=== PATIENT | female | born 1970 | race Caucasian/White ===

== ENCOUNTER 2021-04-28 11:21 | Outpatient (CLI) | payer OTHER, SELFPAY ==
--- NOTE | 2021-04-28 11:30 | ECG_ITS ---
Measurements Intervals [place] Rate: 81 P: 53 MA: 167 QRS: 25 QRSD: 87 T: 20 QT: 341 QTc: 396 Interpretive Statements SINUS RHYTHM DELAYED PRECORDIAL R/S TRANSITION BORDERLINE ECG Electronically Signed On 04-28-2021 11:57:17 CDT by Juan Reaves D.O.
== END 2021-04-28 11:22 | disposition home or self-care (01) ==
LOC: ANHSURGERY 11:26
PROVIDERS: PCP Family Medicine; Visit Provider Obstetrics & Gynecology
DX: Z01.818 Encounter for other preprocedural examination (principal); N39.3 Stress incontinence (female) (male); E78.5 Hyperlipidemia, unspecified; I10 Essential (primary) hypertension
CPT/HCPCS: 36415; 86850; 86900; 86901; 93005

== ENCOUNTER 2021-04-29 02:14 | Day surgery (SDC) | payer OTHER, SELFPAY ==
[2021-04-21 11:14] VITALS: BMI 30.5
--- NOTE | 2021-04-26 12:20 | PM.IMHP ---
H&P: HPI History of Present Illness Date/Time: 04/26/21 12:20 This is a 50-year-old female admitted for tension-free vaginal tape and cystoscopy secondary to stress urinary incontinence. Patient complains of loss of urine with coughing laughing sneezing or other activities. She finds is socially embarrassing like to have this taken care of. Risks and benefits were reviewed including but not exclusive of , aspiration pneumonia, bleeding, transfusion, perforation injury to bowel, bladder, ureters, or other internal organs the need for open laparotomy the risk of mesh and the need for prolonged catheterization were reviewed. She had all questions answered and asked proceeded Chief Complaint: Stress urinary incontinence Review of Systems Review of Systems: All systems reviewed & are unremarkable except as noted in HPI and below PMFSH Past Medical History Medical History BMI 33.0-33.9,adult Surgical History Surgical History History of ankle surgery Family History Family History Sibling Family history of obesity Mother Family history of cardiovascular disease, Onset Age: 62 Family history of chronic obstructive pulmonary disease, Onset Age: 62 Father Family history of cardiovascular disease, Onset Age: 63 Other Family history of throat cancer Social History Social History Smoking status: Never smoker Alcohol intake: current Drinks per week: 4 Substance use: never Substance use type: does not use Spiritual care concerns: No Meds Home Medications and Allergies Home Medications Medication Instructions Recorded Confirmed Type ascorbic acid-vitamin E-biotin 1 tablet PO HS 04/21/21 04/21/21 History [Hair, Skin, Nails with Biotin] atorvastatin 40 mg PO HS 04/21/21 04/21/21 History lisinopril 10 mg PO HS 04/21/21 04/21/21 History Allergies Allergy/AdvReac Type Severity Reaction Status Date / Time hydrocodone Allergy Unknown Nausea Verified 04/21/21 11:13 Exam Const: General: no acute distress Eyes: General: appearance normal, both eyes and all related structures Neck: Neck: supple and no JVD Thyroid: thyroid normal Resp: Effort & Inspection: normal respiratory effort Auscultation: clear to auscultation bilaterally Cardio: Rate: regular rate Rhythm: regular rhythm GI: Inspection: non-distended GI Palp: Yes Soft to palpation, No Tenderness to palpation present (GI) and No Guarding due to palpation present (GI) Auscultation: normal bowel sounds : General: Yes bladder normal to palpation External Female Exam: normal external appearance Speculum Exam - Vagina: normal vaginal discharge and No vaginal bleeding Speculum Exam - Cervix: nontender Bimanual exam- vagina & uterus: bladder normal to palpation and No Cervical tenderness present OB/external & speculum: No vaginal bleeding Skin: General skin exam: no rashes or lesions noted Extrem: General: normal to inspection and no edema Psych: Mental Status: mental status grossly normal Affect: normal affect Assessment and Plan Additional Plan Impression: Stress urinary incontinence Plan: Cystoscopy and tension-free vaginal tape
[2021-04-29] VITALS (8 sets, daily range): BP systolic 137–152; BP diastolic 74–93; PULSE 70–97; RESP 9–16; TEMP 36.3; O2SAT 97–100
[2021-04-29] MEDS: LACTATED RINGERS 1,000 ML 30 ML IV CONT (06:40)
--- NOTE | 2021-04-29 06:59 | WPDANESEPPF ---
Anes - Initial Pre Proc Eval Procedure: Operation Date: 04/29/21 07:30 Proposed Procedures p Cystoscopy, Tension Free Vaginal Taping - Brad Antonio MD Date/Time: 04/29/21 06:59 Surgeon: Brad Antonio MD Pre Op Diagnosis: JOSE Patient Data Age: 50 Gender: F Height: 1.64 m Weight: 86.6 kg Last Vital Signs Temp 36.3 C L 04/29/21 06:25 Pulse 85 04/29/21 06:25 Resp 14 04/29/21 06:25 BP 152/92 H 04/29/21 06:25 Pulse Ox 100 04/29/21 06:25 Allergies Allergy/AdvReac Type Severity Reaction Status Date / Time hydrocodone Allergy Intermediate Nausea Verified 04/29/21 06:36 Home Medications Medication Instructions Recorded Confirmed Type ascorbic acid-vitamin E-biotin 1 tablet PO HS 04/21/21 04/29/21 History [Hair, Skin, Nails with Biotin] atorvastatin 40 mg PO HS 04/21/21 04/29/21 History lisinopril 10 mg PO HS 04/21/21 04/29/21 History Patient hx anesthesia problems: post op nausea/vomiting Family hx anesthesia problems: none Results Review: All pre-operative results and documents have been reviewed as part of the pre-operative evaluation. [facility] Past Medical History Medical History BMI 33.0-33.9,adult Essential (primary) hypertension Hyperlipidemia LDL goal <130 Surgical History Surgical History History of ankle surgery Family History Family History Sibling Family history of obesity Mother Family history of cardiovascular disease, Onset Age: 62 Family history of chronic obstructive pulmonary disease, Onset Age: 62 Father Family history of cardiovascular disease, Onset Age: 63 Other Family history of throat cancer Social History Social History Smoking status: Never smoker Alcohol intake: current Drinks per week: 4 Substance use: never Substance use type: does not use Living arrangements: with family Spiritual care concerns: No Anes - Eval Final PreProcedure Day of Procedure 04/29/21 06:59 Patient weight: obese Heart: regular rate and rhythm Lungs: clear to auscultation Airway: Mallampati scale class II Neurological: alert and oriented Last oral intake: >/= 8 hours ASA classification: III Emergent: no Anesthetic plan: proceed Anesthesia type and monitoring: general LMA and standard monitoring Results Review: All pre-operative results and documents have been reviewed as part of the pre-operative evaluation. Informed Consent: The patient's anesthetic plan and its attendant risks and benefits were discussed with the patient/family/POA. Questions were solicited and answers provided to the satisfaction of the patient/family/POA.
[2021-04-29] MEDS: SCOPOLAMINE 1.5 MG PATCH TRANSDERM (07:06)
--- NOTE | 2021-04-29 07:11 | WPDHPUPDATE1 ---
History and Physical Update Update Date/Time: 04/29/21 07:11 History and Physical has been reviewed, including an updated exam of the patient. There are NO changes in the patient's condition. Risks, benefits, and alternatives have been discussed and questions answered. Patient agrees to proceed with procedure.
--- NOTE | 2021-04-29 08:05 | W.PM.PROC2 ---
Procedure Note - Detailed Date of Procedure 04/29/21 Pre-op Diagnosis JOSE Post-op Diagnosis same Procedure Performed Cystoscopy/ tension-free vaginal tape Surgeon Brad Antonio MD Anesthesia general Indications this is a 50-year-old female with stress urinary incontinence refractory to kegels Findings hyper reactive urethra to bowel salmonella were Description of Procedure the patient was prepped draped in the normal sterile fashion placed in the dorsal lithotomy position. Under excellent general endotracheal and seizure weighted speculum placed posterior fornix vagina. A 6 an 18 [place] catheter was placed in the bladder drained of clear urine. And infra urethral incision was made at the midportion and the lateral bladder space is entered by blunt dissection. The catheter guide was placed in the urethra retracted laterally. The right retropubic bladder space entered a 45 degree angle and up through 35? through the fascia and skin. Urethra guide was retracted opposite in the left retropubic bladder space entered at a 45 degree angle and back upto30? through the skin. The catheter was removed and the 70degree cystoscope inserted. No injury seen. This was then brought up to the tightness of an open pee on clamped. The plastic was cut and the tape trimmed at the suprapubic area. This was closed with glue. Catheter was replaced and the vaginal incision closed with running 0 chromic. Catheter was removed and blood loss estimated at25cc. All sponge, needle, instrument counts were correct. There were no immediate complications noted Implants TVT device Estimated Blood Loss 25 Drains No Packing No Pathology none sent Complications No immediate complications Condition stable Disposition PACU
== END 2021-04-29 09:55 | disposition home or self-care (01) ==
PROVIDERS: PCP Family Medicine; Visit Provider Obstetrics & Gynecology
PROC: 0TSD0ZZ Reposition Urethra, Open Approach (ICD-10-PCS; CPT 57288; principal; 2021-04-29 07:30)
DX: N39.3 Stress incontinence (female) (male) (principal); I10 Essential (primary) hypertension; E78.5 Hyperlipidemia, unspecified; E66.9 Obesity, unspecified; Z68.32 Body mass index [BMI] 32.0-32.9, adult
CPT/HCPCS: 57288; 36415; 86850; 86900; 86901; 93005; A9270; C1771; J2250; J2270; J2405; J2704; J7030; J7120

== ENCOUNTER 2021-05-09 02:14 | Day surgery (SDC) | payer OTHER, SELFPAY ==
[2021-05-02 14:18] VITALS: BMI 32.2
[2021-05-09] VITALS (8 sets, daily range): BP systolic 135–150; BP diastolic 71–94; PULSE 75–108; RESP 10–16; TEMP 36.4–36.7; O2SAT 99–100
--- NOTE | 2021-05-09 08:24 | P.PNAN_ITS ---
Anes - Initial Pre Proc Eval Procedure: Operation Date: 05/09/21 13:30 Proposed Procedures p Debridement Right Lateral Epicondyle - Joe Leigh MD Date/Time: 05/09/21 08:24 Surgeon: Joe Leigh MD Pre Op Diagnosis: right lateral epicondylitis Patient Data Age: 50 Gender: F Height: 1.64 m Weight: 86.6 kg Allergies Allergy/AdvReac Type Severity Reaction Status Date / Time hydrocodone AdvReac Intermediate Nausea Verified 05/09/21 11:25 Home Medications Medication Instructions Recorded Confirmed Type ascorbic acid-vitamin E-biotin 1 tablet PO HS 04/21/21 05/09/21 History [Hair, Skin, Nails with Biotin] atorvastatin 40 mg PO HS 04/21/21 05/09/21 History lisinopril 10 mg PO HS 04/21/21 05/09/21 History tramadol 50 mg PO Q6H PRN #20 tablet 04/29/21 05/09/21 Rx Patient hx anesthesia problems: none Family hx anesthesia problems: none Results Review: All pre-operative results and documents have been reviewed as part of the pre-operative evaluation. [facility] Past Medical History Medical History (Updated 05/09/21 @ 08:25 by César Owen MD) BMI 33.0-33.9,adult Essential (primary) hypertension Hyperlipidemia LDL goal <130 Obesity, unspecified Right lateral epicondylitis Surgical History Surgical History History of ankle surgery Family History Family History Sibling Family history of obesity Mother Family history of cardiovascular disease, Onset Age: 62 Family history of chronic obstructive pulmonary disease, Onset Age: 62 Father Family history of cardiovascular disease, Onset Age: 63 Other Family history of throat cancer Social History Social History Smoking status: Never smoker Alcohol intake: current Drinks per week: 4 Substance use: never Substance use type: does not use Living arrangements: with family Spiritual care concerns: No Anes - Eval Final PreProcedure Day of Procedure 05/09/21 08:24 Patient weight: obese Heart: regular rate and rhythm Lungs: clear to auscultation and normal air movement Airway: Mallampati scale class II Neurological: alert and oriented Last oral intake: >/= 8 hours ASA classification: III Emergent: no Anesthetic plan: proceed Anesthesia type and monitoring: general LMA Results Review: All pre-operative results and documents have been reviewed as part of the pre-operative evaluation. Informed Consent: The patient's anesthetic plan and its attendant risks and benefits were discussed with the patient/family/POA. Questions were solicited and answers provided to the satisfaction of the patient/family/POA.
[2021-05-09] MEDS: ACETAMINOPHEN 500 MG TABLET 1000 MG PO (11:40)
[2021-05-09] MEDS: LACTATED RINGERS 1,000 ML 30 ML IV CONT (11:52)
[2021-05-09] MEDS: KETOROLAC 15 MG/ML VIAL (*BKC) IV PUSH (11:53)
--- NOTE | 2021-05-09 11:58 | WPDANESEPPF ---
Anes - Initial Pre Proc Eval Procedure: Operation Date: 05/09/21 13:30 Proposed Procedures p Debridement Right Lateral Epicondyle - Joe Leigh MD Date/Time: 05/09/21 11:58 Surgeon: Joe Leigh MD Pre Op Diagnosis: right lateral epicondylitis Patient Data Age: 50 Gender: F Height: 1.64 m Weight: 87.3 kg Last Vital Signs Temp 98.1 F 05/09/21 11:55 Pulse 79 05/09/21 11:55 Resp 16 05/09/21 11:55 BP 147/86 H 05/09/21 11:55 Pulse Ox 100 05/09/21 11:55 Allergies Allergy/AdvReac Type Severity Reaction Status Date / Time hydrocodone AdvReac Intermediate Nausea Verified 05/09/21 11:25 Home Medications Medication Instructions Recorded Confirmed Type ascorbic acid-vitamin E-biotin 1 tablet PO HS 04/21/21 05/09/21 History [Hair, Skin, Nails with Biotin] atorvastatin 40 mg PO HS 04/21/21 05/09/21 History lisinopril 10 mg PO HS 04/21/21 05/09/21 History tramadol 50 mg PO Q6H PRN #20 tablet 04/29/21 05/09/21 Rx Results Review: All pre-operative results and documents have been reviewed as part of the pre-operative evaluation. [facility] Past Medical History Medical History (Updated 05/09/21 @ 08:25 by César Owen MD) BMI 33.0-33.9,adult Essential (primary) hypertension Hyperlipidemia LDL goal <130 Obesity, unspecified Right lateral epicondylitis Surgical History Surgical History History of ankle surgery Family History Family History Sibling Family history of obesity Mother Family history of cardiovascular disease, Onset Age: 62 Family history of chronic obstructive pulmonary disease, Onset Age: 62 Father Family history of cardiovascular disease, Onset Age: 63 Other Family history of throat cancer Social History Social History Smoking status: Never smoker Alcohol intake: current Drinks per week: 4 Substance use: never Substance use type: does not use Living arrangements: with family Spiritual care concerns: No Anes - Eval Final PreProcedure Day of Procedure 05/09/21 11:58 Results Review: All pre-operative results and documents have been reviewed as part of the pre-operative evaluation. Informed Consent: The patient's anesthetic plan and its attendant risks and benefits were discussed with the patient/family/POA. Questions were solicited and answers provided to the satisfaction of the patient/family/POA.
--- NOTE | 2021-05-09 12:49 | WPDHPUPDATE1 ---
History and Physical Update Update Date/Time: 05/09/21 12:49 History and Physical has been reviewed, including an updated exam of the patient. There are NO changes in the patient's condition. Risks, benefits, and alternatives have been discussed and questions answered. Patient agrees to proceed with procedure.
--- NOTE | 2021-05-09 13:40 | WPDANESPNB ---
Anes - Peripheral Nerve Block Date/Time: 05/09/21 13:40 I have discussed with the patient/family/POA the placement of a peripheral nerve block for post-operative pain management, including associated risks, benefits, complications, and side effects. Alternative methods of post-operative analgesia were detailed. Questions were solicited and answers provided to the satisfaction of the patient/family/POA. Time-Out: A pre-procedural Time-Out was completed immediately before starting the procedure and confirmed: Patient Identification, Site, Procedure, Patient Position and the Availability of Requisite Equipment. Clinical Indications: Acute post-operative pain management requested by the operative surgeon. Nerve Block Insertion Note Anes-nerve block: supraclavicular right Patient position: supine Skin prep: chlorhexidine Needle: 22 gauge, stimulating, insulated echogenic needle. Needle length: 80 mm Technique: ultrasound (in plane) Injectate: bupivacaine 0.5% with epi 5 mcg/ml (20cc) Observations: tolerated well Complications: none Procedure start time:: 1330 Procedure end time:: 133
[2021-05-09] MEDS: ceFAZolin 2 GM/D5W 50 ML 2 GM/50 ML BAG IVPB (13:46)
--- NOTE | 2021-05-09 14:43 | P.OP_ITS ---
Procedure Note - Detailed Date of Procedure 05/09/21 Pre-op Diagnosis right lateral epicondylitis Post-op Diagnosis same Procedure Performed Debrided right lateral epicondylar tendinous origin with partial epicondylectomy Surgeon Joe Leigh MD Setter Induction Heating Equipment Carissa Harper Anesthesia general and regional Description of Procedure The patient was identified and proper site identified. In the preop holding area, Anesthesia performed a right upper extremity block. She was then taken to the operating room and transferred to the OR table placing her supine taking care to pad her torso and extremities. After general anesthetic induction and intubation, a nonsterile tourniquet was placed high in the right arm. Right upper extremity was prepped and draped in usual sterile fashion. Extremity was exsanguinated and the tourniquet inflated to 250 millimeters of mercury remaining up for approximately 22 minutes. Longitudinal incision was made over the right elbow common extensor origin. Subcutaneous tissue was sharply dissected protecting neurovascular structures. Tendinous origin was identified and released off of the epicondyle which was somewhat spurt. Partial epicondylectomy was performed with the rongeur. The tendon origin was divided longitudinally opening this up in a T fashion allowing for debridement of the degenerative tendon with the midsubstance of the attachment site. The wound was irrigated with sterile antibiotic solution. Tendon edges reapproximated [id number] with 3-0 Monocryl suture. Deeper layers of the subcu were reapproximated with 3-0 Monocryl and then skin with three 0 V lock and tissue adhesive. Sterile dressings applied. Tourniquet was released. She tolerated the procedure well. She was awakened, extubated and taken to recovery area in stable condition. There were no known intraoperative complications. Estimated blood loss was negligible. She received perioperative antibiotics. Estimated Blood Loss 2 Tourniquet Time 22 Drains No Packing No Pathology none sent Complications No immediate complications Condition stable Disposition PACU
--- NOTE | 2021-05-09 15:04 | SUR.PHASEI ---
Simple mask removed at 1504.
== END 2021-05-09 16:25 | disposition home or self-care (01) ==
PROVIDERS: PCP Family Medicine; Visit Provider Orthopaedic Surgery
PROC: (CPT 24359; principal; 2021-05-09 13:30)
DX: M77.11 Lateral epicondylitis, right elbow (principal); G89.18 Other acute postprocedural pain; I10 Essential (primary) hypertension; E78.5 Hyperlipidemia, unspecified; E66.9 Obesity, unspecified; Z68.32 Body mass index [BMI] 32.0-32.9, adult
CPT/HCPCS: 64415; 24359; A4565; A9270; J0330; J0690; J1100; J1885; J2250; J2704; J3010; J7120